=== PATIENT | female | born 1955 | race Caucasian/White ===

== ENCOUNTER 2023-12-06 10:12 | Inpatient (IN) | payer OTHER, MEDICARE ==
[2023-12-06] MEDS ORDERED: NA CHLORIDE 0.9% 1,000 ML ONE ×2 (10:57→12:44)
[2023-12-06] MEDS ORDERED: ONDANSETRON 4 MG/2 ML VIAL ONE (10:57)
[2023-12-06 11:18] LABS: Absolute Basophils 0.1 K/uL (0-0.5); Absolute Lymphocytes (CBC) 0.8 K/uL (0.7-4.9); Absolute Monocytes 0.7 K/uL (0.1-1.3); Absolute Neutrophil 19.9 K/uL (1.8-8.0); Basophils % 0.5 % (0-1.3); Hematocrit 43.2 % (36.0-45.0); Hemoglobin 14.6 g/dL (12.0-15.0); Lymphocytes % 3.9 % (15.3-44.8); MCH 29.8 pg (27.0-35.0); MCHC 33.9 g/dL (32.0-36.0); MCV 88.1 fL (80-100); MPV 7.3 fL (7.6-11.3); Monocytes % 3.3 % (3.3-12.3); Neutrophils % 92.3 % (41.7-73.7); Nucleated Red Blood Cells % 0.1 % (0-0); Platelets 316 thou/uL (152-406)
[2023-12-06 11:25] LABS: PTT, Activated Partial Thromb 31.3 SECONDS (24.3-36.9); Protime INR 1.09
[2023-12-06 11:29] LABS: SARS-CoV-2 Antigen CONTROL BLUE LINE VIS/BG OK; SARS-CoV-2 Antigen Rapid Res Negative (Negative)
[2023-12-06 11:39] LABS: Albumin 3.7 g/dL (3.4-5.0); Albumin/Globulin Ratio 0.9 (1.1-1.8); Bilirubin Total 0.9 mg/dL (0.2-1.0); Globulin 4.2 g/dL (2.3-3.5); Protein, Total 7.9 g/dL (6.4-8.2)
[2023-12-06 11:59] LABS: Specific Gravity 1.017 (1.005-1.030); Sqamous Epithelial <5 /HPF (None Seen); Urine Bacteria <20 /HPF (<20); Urine Bilirubin NEGATIVE (Negative); Urine Blood 3+ (Negative); Urine Clarity Extremely Turbid (Clear); Urine Color Light-Yellow (Yellow); Urine Culture Reflex Order NOT NEEDED; Urine Glucose 4+ (Over) (Negative); Urine Ketones TRACE (Negative); Urine Microscopic Reflex YN ORDER UMIC; Urine Mucus Slight /HPF (None Seen); Urine Nitrite NEGATIVE (Negative); Urine Protein 1+ (Negative); Urine Urobilinogen Normal (Normal); Urine pH 5.5 (5.0-7.0)
--- NOTE | 2023-12-06 12:11 | RAD REPORT ---
EXAM DESCRIPTION: CTAbdomen Pelvis W Contrast - 12/06/2023 12:02 pm CLINICAL HISTORY: Abdominal pain. Abd pain;Nausea / vomiting COMPARISON: No comparisons TECHNIQUE: Biphasic CT imaging of the abdomen and pelvis was performed with 100 ml non-ionic IV cont rast. All CT scans are performed using dose optimization technique as appropriate and may include automated exposure control or mA/KV adjustment according to patient size. FINDINGS: The lung bases are clear. The liver, spleen, pancreas, adrenal glands and kidneys are within normal limits. No bowel obstruction, free air, free fluid or abscess. The colon has a mildly thickened wall througho ut, greater on the right suggesting nonspecific colitis. No pneumatosis coli seen. The appendix is no t identified as a discrete structure, however, no secondary findings of appendicitis are identified. No evidence of significant lymphadenopathy. Small fat containing umbilical hernia. No suspicious bony findings. IMPRESSION: There is a diffuse mild colitis pattern suspected, greater on the right. This is nonspec ific but may be infectious or inflammatory in etiology.
[2023-12-06 12:41] LABS: Band Neutrophils 9 % (0-1); Blood Morphology Comment NOT SEEN (NOT SEEN); Differential Total Cells Count 100; Lymphocytes 3 % (15-42); Metamyelocytes 1 % (0-0); Monocytes 4 % (0-10); Platelet Estimate ADEQ; Segmented Neutrophils 83 % (40-80)
--- NOTE | 2023-12-06 12:43 | ER ---
Nurse's Notes [facility] Name: Karie Bae Age: 68 yrs Sex: Female : 1955 Arrival Date: 12/06/2023 Time: 10:12 Bed 19 Private MD: Diagnosis: Infectious gastroenteritis and colitis, unspecified;Hypotension, unspecified;Dehydration Presentation: 12/05 10:35 Chief complaint: Patient states: STATES DIARRHEA SINCE MONDAY. WENT TO DR. PARADA'S iw OFFICE THIS AM AND HR WAS IN 130'S. PT TOOK HOME MEDICATION METOPROL AND LOSARTAN. SENT TO ED FOR DEHYDRATION. TODAY HAS A HEADACHE WITH NAUSEA AND DIARRHEA. 10:35 Method Of Arrival: Ambulatory iw 10:36 Coronavirus screen: Client denies travel out of the [place] in the last 14 days. At this iw time, the client does not indicate any symptoms associated with coronavirus-19. Ebola Screen: Patient negative for fever greater than or equal to 101.5 degrees Fahrenheit, and additional compatible Ebola Virus Disease symptoms Patient denies exposure to infectious person. Patient denies travel to an Ebola-affected area in the 21 days before illness onset. No symptoms or risks identified at this time. 10:37 Initial Sepsis Screen: Does the patient meet any 2 criteria? HR > 90 bpm. No. Patient's iw initial sepsis screen is negative. Does the patient have a suspected source of infection? No. Patient's initial sepsis screen is negative. Risk Assessment: Do you want to hurt yourself or someone else? Patient reports no desire to harm self or others. Onset of symptoms was December 04, 2023. 10:37 Acuity: WOO 3 iw Triage Assessment: 10:37 General: Appears in no apparent distress. comfortable, Behavior is calm, cooperative. iw Pain: Complains of pain in head. Neuro: Level of Consciousness is awake, alert, obeys commands, Oriented to person, place, time, situation. Cardiovascular: No deficits noted. Respiratory: Airway is patent Respiratory effort is even, unlabored, Respiratory pattern is regular, symmetrical. GI: Reports diarrhea, nausea. : No deficits noted. No signs and/or symptoms were reported regarding the genitourinary system. Historical: - Allergies: 10:37 PENICILLINS; iw - PMHx: 10:37 TACHYCARDIA; iw - Immunization history:: Adult Immunizations unknown. - Infectious Disease History:: Denies. - Social history:: Smoking status: Patient denies any tobacco usage or history of. - Family history:: not pertinent. - Hospitalizations: : No recent hospitalization is reported. Screenin:35 [facility] ED Fall Risk Assessment (Adult) History of falling in the last 3 months, rs5 including since admission No falls in past 3 months (0 pts). 10:35 Abuse screen: Denies threats or abuse. Nutritional screening: No deficits noted. rs5 Tuberculosis screening: No symptoms or risk factors identified. Assessment: 10:36 General: Appears in no apparent distress. uncomfortable, Behavior is calm, cooperative. rs5 Pain: Denies pain. Neuro: Level of Consciousness is awake, alert, obeys commands, Oriented to person, place, time, situation. Cardiovascular: Rhythm is regular. Respiratory: Airway is patent Respiratory effort is even, unlabored, Respiratory pattern is regular, symmetrical. GI: Abdomen is round non-distended, Reports diarrhea, nausea, vomiting. : No signs and/or symptoms were reported regarding the genitourinary system. EENT: No signs and/or symptoms were reported regarding the EENT system. Derm: Skin is intact, Skin is pink, warm \T\ dry. Musculoskeletal: Range of motion: intact in all extremities. 12:02 Reassessment: Patient and/or family updated on plan of care and expected duration. Pain rs5 level reassessed. Patient is alert, oriented x 3, equal unlabored respirations, skin warm/dry/pink. 13:10 Reassessment: No changes from previously documented assessment. rs5 14:18 Reassessment: Patient denies pain at this time. Patient states feeling better. rs5 Vital Signs: 10:36 BP 95 / 66; Pulse 103; Resp 16; Temp 99.5(O); Pulse Ox 95% ; Weight 67.59 kg; Height 5 iw ft. 5 in. ; 14:18 BP 115 / 72; Pulse 94; Resp 18; Pulse Ox 99% ; rs5 10:36 Body Mass Index 24.79 (67.59 kg, 165.1 cm) iw ED Course: 10:15 Patient arrived in ED. im 10:34 Jesús Flynn MD is Attending Physician. rn 10:35 Patient has correct armband on for positive identification. Placed in gown. Bed in low rs5 position. Call light in reach. Side rails up X2. 10:35 No provider procedures requiring assistance completed. rs5 10:37 Triage completed. iw 10:39 Arm band placed on. iw 10:47 Raymon Diehl, RN is Primary Nurse. rs5 11:07 Initial lab(s) drawn, by me, sent to lab. First set of blood cultures drawn EKG done, zm by ED staff, COVID swab sent to lab. Flu and/or RSV swab sent to lab. 11:17 Inserted saline lock: 20 gauge in left antecubital area, using aseptic technique. Blood zm collected. 11:18 Warm blanket given. zm 11:19 Second set of blood cultures drawn by me. [id number] 11:48 Urine collected: clean catch specimen, clear. [id number] 12:04 CT Abd/Pelvis - IV Contrast Only In Process Unspecified. EDMS 12:42 Ankita Parada MD is Hospitalizing Provider. rn 15:57 Primary Nurse role handed off by Raymon Diehl RN hb Administered Medications: 11:15 Drug: NS 0.9% IV 1000 ml IV at 1 bolus Per protocol; 1000 mL bolus Route: IV; Rate: 1 rs5 bolus; Site: right antecubital; 11:20 Drug: Ondansetron IVP 4 mg IVP once; over 2 minutes Route: IVP; Site: left antecubital; rs5 12:30 Drug: Ciprofloxacin IVPB 400 mg 200 ml IVPB once over 60 mins Volume: 200 ml; Route: rs5 IVPB; Infused Over: 60 mins; Site: right antecubital; 12:45 Follow up: Response: No adverse reaction rs5 12:30 Drug: metroNIDAZOLE IVPB 500 mg 100 ml IVPB at 200 ml/hr once over 30 mins Volume: 100 rs5 ml; Route: IVPB; Rate: 200 ml/hr; Infused Over: 30 mins; Site: right antecubital; 12:45 Follow up: Response: No adverse reaction rs5 12:30 Drug: NS 0.9% IV 1000 ml IV at 1000 ml once Route: IV; Rate: 1000 ml; Site: right rs5 antecubital; 12:45 Follow up: Response: No adverse reaction rs5 Medication: 10:35 VIS not applicable for this client. rs5 Outcome: 12:42 Decision to Hospitalize by Provider. rn 15:57 Patient left the ED. hb 16:54 Patient left the ED. rs5 Signatures: Dispatcher [employer] EDAnjali Laws RN RN iw Jesús Flynn MD MD rn Baxter, Heather, RN RN hb Martinez, Zaina zm Sotelo, Ricky, RN RN rs5 Kathia Hurt Jordan [email or web address] Corrections: (The following items were deleted from the chart) 10:36 10:35 Chief complaint: Patient states: STATES DIARRHEA SINCE MONDAY. WENT TO DR. PARADA'S iw OFFICE THIS AM AND HR WAS IN 130'S. PT TOOK HOME MEDICATION METOPROL AND LOSARTAN. iw 10:38 10:35 Chief complaint: Patient states: STATES DIARRHEA SINCE MONDAY. WENT TO DR. PARADA'S iw OFFICE THIS AM AND HR WAS IN 130'S. PT TOOK HOME MEDICATION METOPROL AND LOSARTAN. SENT TO ED FOR DEHYDRATION iw : 10:37 Onset of symptoms was December 06, 2023 iw
--- NOTE | 2023-12-06 12:43 | EDPHYS ---
Physician Documentation [facility] Name: Karie Bae Age: 68 yrs Sex: Female : 1955 Arrival Date: 12/06/2023 Time: 10:12 Bed 19 Private MD: ED Physician Jesús Flynn HPI: 12/05 11:17 This 68 yrs old Female presents to ER via Ambulatory with complaints of Diarrhea, rn Nausea. 11:17 The patient presents to the emergency department with nausea, diarrhea, abdominal pain. rn Onset: The symptoms/episode began/occurred 3 day(s) ago. Possible causes: unknown. The symptoms are aggravated by nothing. The symptoms are alleviated by nothing. Severity of symptoms: At their worst the symptoms were moderate in the emergency department the symptoms are unchanged. The patient has not experienced similar symptoms in the past. Patient reports diarrhea, nonbloody since 3 days ago. Associated with nausea. Mild lower abdominal cramping. sick recently as well with mild diarrhea but is already over symptoms. Called PCP when heart rate was in the 130s today and told to come in for evaluation. Reports generalized weakness and malaise.. Historical: - Allergies: 10:37 PENICILLINS; iw - PMHx: 10:37 TACHYCARDIA; iw - Immunization history:: Adult Immunizations unknown. - Infectious Disease History:: Denies. - Social history:: Smoking status: Patient denies any tobacco usage or history of. - Family history:: not pertinent. - Hospitalizations: : No recent hospitalization is reported. ROS: 11:17 Constitutional: Negative for fever, chills, and weight loss, Cardiovascular: Negative rn for chest pain, palpitations, and edema, Respiratory: Negative for shortness of breath, cough, wheezing, and pleuritic chest pain, Abdomen/GI: Positive for nausea/vomiting/diarrhea Back: Negative for injury and pain, : Negative for injury, bleeding, discharge, and swelling, MS/Extremity: Negative for injury and deformity, Neuro: Positive for generalized weakness and malaise Exam: 11:17 Constitutional: This is a well developed, well nourished patient who is awake, alert, rn and in no acute distress. ENT: Dry mucous membranes Cardiovascular: Regular rate and rhythm with a normal S1 and S2. No gallops, murmurs, or rubs. Normal PMI, no JVD. No pulse deficits. Respiratory: Lungs have equal breath sounds bilaterally, clear to auscultation and percussion. No rales, rhonchi or wheezes noted. No increased work of breathing, no retractions or nasal flaring. Abdomen/GI: Soft, mild lower abdominal tenderness. No rebound or guarding. Neuro: Awake and alert, GCS 15 11:22 ECG was reviewed by the Attending Physician. rn Vital Signs: 10:36 BP 95 / 66; Pulse 103; Resp 16; Temp 99.5(O); Pulse Ox 95% ; Weight 67.59 kg; Height 5 iw ft. 5 in. ; 14:18 BP 115 / 72; Pulse 94; Resp 18; Pulse Ox 99% ; rs5 10:36 Body Mass Index 24.79 (67.59 kg, 165.1 cm) iw MDM: 10:34 Patient medically screened. rn 12:41 Differential diagnosis: Nonspecific abd pain, diverticulitis, viral gastroenteritis, rn gastroenteritis, Colitis. Data reviewed: vital signs, nurses notes, lab test result(s), radiologic studies, CT scan, and as a result, I will admit patient. Consideration of Admission/Observation Patient was admitted/placed on observation. Escalation of care including admission/observation considered. Management of patient was discussed with the following: Primary Care Provider: Case discussed with Dr. Wesley, will admit for IV antibiotics and fluids. Counseling: I had a detailed discussion with the patient and/or guardian regarding the historical points, exam findings, and any diagnostic results supporting the discharge/admit diagnosis, lab results, radiology results, the need for further work-up and treatment in the hospital. Response to treatment: the patient's symptoms have mildly improved after treatment, and as a result, I will admit patient. ED course: Patient still mildly hypotensive, will admit for colitis. 12/05 10:47 Order name: CBC with Diff; Complete Time: 12:43 rn 12/05 10:47 Order name: CMP; Complete Time: 12:15 rn 12/05 10:47 Order name: Lipase; Complete Time: 12:15 rn 12/05 10:47 Order name: Urinalysis w/ reflexes; Complete Time: 12:15 rn 12/05 10:47 Order name: SARS RAPID; Complete Time: 12:15 rn 12/05 10:47 Order name: Flu; Complete Time: 12:15 rn 12/05 10:47 Order name: Blood Culture Adult (2) rn 12/05 10:47 Order name: Lactate w/ 2H reflex if indic.; Complete Time: 12:15 rn 12/05 10:47 Order name: Protime (+inr); Complete Time: 12:15 rn 12/05 10:47 Order name: Ptt, Activated; Complete Time: 12:15 rn 12/05 12:39 Order name: Manual Differential; Complete Time: 12:43 EDMS 12/05 10:47 Order name: CT Abd/Pelvis - IV Contrast Only; Complete Time: 12:15 rn 12/05 10:47 Order name: EKG; Complete Time: 10:47 rn 12/05 10:47 Order name: IV Saline Lock; Complete Time: 11:48 rn 12/05 10:47 Order name: Labs collected and sent; Complete Time: 11:48 rn 12/05 10:47 Order name: Accucheck; Complete Time: 11:47 rn 12/05 10:47 Order name: Cardiac monitoring; Complete Time: 11:47 rn 12/05 10:47 Order name: EKG - Nurse/Tech; Complete Time: 11:47 rn 12/05 10:47 Order name: IV Saline Lock - Large Bore; Complete Time: 11:47 rn 12/05 10:47 Order name: O2 Per Protocol; Complete Time: 11:47 rn 12/05 10:47 Order name: O2 Sat Monitoring; Complete Time: 11:47 rn 12/05 10:47 Order name: Vital Signs; Complete Time: 11:47 rn EC: Rate is 97 beats/min. Rhythm is regular. QRS Boles is Normal. DE interval is normal. QRS rn interval is normal. QT interval is normal. No Q waves. T waves are Normal. No ST changes noted. Clinical impression: NSR w/ Non-specific ST/T Changes. Interpreted by me. Reviewed by me. Administered Medications: 11:15 Drug: NS 0.9% IV 1000 ml IV at 1 bolus Per protocol; 1000 mL bolus Route: IV; Rate: 1 rs5 bolus; Site: right antecubital; 11:20 Drug: Ondansetron IVP 4 mg IVP once; over 2 minutes Route: IVP; Site: left antecubital; rs5 12:30 Drug: Ciprofloxacin IVPB 400 mg 200 ml IVPB once over 60 mins Volume: 200 ml; Route: rs5 IVPB; Infused Over: 60 mins; Site: right antecubital; 12:45 Follow up: Response: No adverse reaction rs5 12:30 Drug: metroNIDAZOLE IVPB 500 mg 100 ml IVPB at 200 ml/hr once over 30 mins Volume: 100 rs5 ml; Route: IVPB; Rate: 200 ml/hr; Infused Over: 30 mins; Site: right antecubital; 12:45 Follow up: Response: No adverse reaction rs5 12:30 Drug: NS 0.9% IV 1000 ml IV at 1000 ml once Route: IV; Rate: 1000 ml; Site: right rs5 antecubital; 12:45 Follow up: Response: No adverse reaction rs5 Disposition Summary: 12/06/23 12:42 Hospitalization Ordered Notes: Hospitalization Status: Inpatient Admission rn Provider: Ankita Wesley rn Location: Telemetry/MedSurg (Inpatient) rn Condition: Stable rn Problem: new rn Symptoms: have improved rn Bed/Room Type: Standard rn Room Assignment: 406(12/06/23 15:57) hb Diagnosis - Infectious gastroenteritis and colitis, unspecified rn - Hypotension, unspecified rn - Dehydration rn Forms: - Medication Reconciliation Form rn - SBAR form rn - Leadership Thank You Letter rn Signatures: Dispatcher [employer] Anjali Molnia, LAURI CARREON Jesús Flynn MD MD rn Baxter, Heather, RN RN Raymon Diehl RN RN rs5 Corrections: (The following items were deleted from the chart) 10:47 10:47 CBC+H.LAB.BRZ ordered. EDMS EDMS 10:47 10:47 COMPREHENSIVE METABOLIC PANEL+C.LAB.BRZ ordered. EDMS EDMS 10:47 10:47 LIPASE+C.LAB.BRZ ordered. EDMS EDMS 10:47 10:47 Urinalysis+U.LAB.BRZ ordered. EDMS EDMS 10:47 10:47 SARS-COV-2 Antigen Rapid+I.LAB.BRZ ordered. EDMS EDMS 10:47 10:47 Influenza Screen (A \T\ B)+BA.LAB.BRZ ordered. EDMS EDMS 10:47 10:47 BLOOD CULTURE*+BA.LAB.BRZ ordered. EDMS EDMS 10:47 10:47 LACTATE+C.LAB.BRZ ordered. EDMS EDMS 10:47 10:47 PROTIME (+INR)+COAG.LAB.BRZ ordered. EDMS EDMS 10:47 10:47 PTT, ACTIVATED+COAG.LAB.BRZ ordered. EDMS EDMS 15:57 12:42 rn hb
[2023-12-06] MEDS ORDERED: CIPROFLOXACIN 400mg IV 400 MG/200 ML BAG IV ONE (12:44)
[2023-12-06] MEDS ORDERED: METRONIDAZOLE 500mg IVPB 500 MG/100 ML BAG IV ONE (12:44)
[2023-12-06] MEDS ORDERED: MORPHINE 4 MG/ML SYR IV PRN (17:45)
[2023-12-06 17:48] VITALS: O2SAT 99
[2023-12-06] MEDS: D5 0.45 NS 1,000 ML IV SCH (18:43)
[2023-12-06] MEDS: METRONIDAZOLE 500mg IVPB 500 MG/100 ML BAG IV SCH (18:43)
[2023-12-06] MEDS: CIPROFLOXACIN 400mg IV 400 MG/200 ML BAG IV SCH (20:15)
[2023-12-07 02:42] LABS: C.diff Antigen/Toxin Ag neg : Tox neg (NEG : NEG); CDIFF INTERNAL NEG CONTROL White Background (WHITE BKGD); STOOL CONSISTENCY Liquid/Semi-Solid
--- NOTE | 2023-12-07 06:00 | HP ---
Date of Admission: 12/06/2023 Chief Complaint: Diarrhea. History Of Present Illness: This is a 68-year-old female patient, who called my office today with complaints of 2 days history of diarrhea and not feeling well at all. She was asked to check her vital signs at home, and her pulse rate was 136, systolic blood pressure was around 111. With that in mind, she was advised to come to emergency room and after she was evaluated in the emergency room, she was admitted to the hospital. Her initial blood pressure was 95/66. The patient was given IV fluid in the emergency room, and empiric IV antibiotics were started, and her condition has improved. When I saw her this evening, she was feeling a lot better compared to earlier today. The patient reports that she had gone out of town with her to [place] and she just came back Monday night, and this was a road trip, and they both ate the same type of food on the day and the day before she got sick. Her does not have any such symptoms and as of Monday night, she started to have fever, chills, nausea, and diarrhea. Denies any abdominal pain. Denies any blood in stool. She had very poor appetite and did not eat or drink much in last couple of days. She has felt very weak and lightheaded at times. Her diarrhea was very frequent, approximately 20-24 times in 24-hour period. Allergies: PENICILLIN CAUSING SHORTNESS OF BREATH AND SHE PASSED OUT. Medications: Caltrate Plus D one tablet 2 times a day; vitamin D3, 1000 units daily; Jardiance 10 mg daily; famotidine 40 mg two times a day; fluticasone nasal spray, one spray each nostril 2 times a day; metoprolol tartrate 50 mg two times a day; olmesartan 20 mg daily; simvastatin 40 mg daily. Review of Systems: Constitutional: As mentioned above. GI: As mentioned above. All other systems reviewed and negative. Past Medical History: Significant for impaired fasting glucose, hypothyroidism, hypertension, hyperlipidemia, gastroesophageal reflux disease, vitamin D deficiency, chronic kidney disease stage 3a. Past Surgical History: Significant for tubal ligation, D and C, appendectomy, removal of basal cell carcinoma. Family History: Father has prostate cancer. Brother had some valvular heart disease. Sister with breast cancer. Social History: Negative for smoking. Use of alcohol, occasional. Physical Examination: Vital Signs: Height 5 feet 5 inches, weight 149 pounds, temperature 99.5 when she first came into emergency room with blood pressure 95/66, pulse 103, respiratory rate 16, oxygen saturation 95%. Last temperature 98.7, pulse 97, respiratory rate 18, blood pressure 120/74, oxygen saturation 93%. General: Awake, alert, oriented, not in distress. HEENT: Head atraumatic, normocephalic. Conjunctivae nonerythematous. Sclerae white. Mouth, no thrush or edema noted. Ears/Nose, no mass, lesion, discharge noted. Neck: Supple. No JVD, lymph nodes, bruit, thyromegaly noted. Lungs: Bilateral good equal air entry. Clear to auscultation. No rhonchi. No rales. Heart: Normal heart sounds, no murmur or gallop. Abdomen: Soft, bowel sounds normal. No guarding, rigidity, tenderness, mass, hepatosplenomegaly, distention, or bruit noted. Extremities: No leg edema. No calf tenderness. Skin: No rash, ulcer, cellulitis. Lymphatics: No lymph node enlargement in neck, supraclavicular, infraclavicular region. Neuro: No focal neurological deficit. Chest: Unremarkable. External Genitalia: Deferred. Rectal: Deferred. Laboratory Data: White count 21.6, hemoglobin 14.6, platelets 316. Sodium 131, potassium 4, chloride 102, bicarb 24, BUN 14, creatinine 1.36, glucose 142. Lactic acid 2. Liver function tests unremarkable. Lipase 52. Urinalysis: Leukocyte esterase 75, rbc 11 to 20, wbc 5 to 10, bacteria negative. Imaging: CAT scan of abdomen and pelvis shows diffuse colitis changes, more on right side than the left side of the colon. Impression: 1. Colitis. 2. Volume depletion. 3. Chronic kidney disease, stage 3a. 4. Hypothyroidism. 5. Hypertension. 6. Impaired fasting glucose. 7. Hyperlipidemia. 8. Gastroesophageal reflux disease. Plan: We will go ahead and admit the patient to hospital for further evaluation and management of this problem. The patient is appropriate for inpatient and is expected to spend 2 midnights in hospital. For her colitis, we will continue empiric IV antibiotic, which is Cipro and metronidazole. I will order stool for C diff and culture. For volume depletion, we will go ahead and continue IV fluid per order. The patient already received 1 L of IV fluid in the emergency room and will continue maintenance IV fluid at this time. For hypertension, we will not start any antihypertensive medication until appropriate time. For hyperlipidemia, we will continue her statin therapy per order. For gastroesophageal reflux disease, continue famotidine and no need for further intervention. For DVT prophylaxis, the patient was advised to move her legs as advised, and we will order Lovenox. Ambulation was encouraged. The patient is on clear liquid diet today. Starting tomorrow, we will advance her diet. We will repeat blood work tomorrow and plan is to discharge her to go home once her condition improves. Details and plan of treatment discussed with the patient. Total time spent was 80 minutes, that includes review of prior hospital record, communication with the patient prior to arrival to the emergency room, review of current emergency room records, communication with ER physicians performing evaluation and management for this hospital admission, and I also communicated with her son this evening and details were discussed with him as well. FANY/GYPSY Voice ID: [id number] BEV
[2023-12-07 06:06] LABS: Absolute Eosinophils 0.1 K/uL (0-0.5); Absolute Lymphocytes (CBC) 1.2 K/uL (0.7-4.9); Absolute Monocytes 1.1 K/uL (0.1-1.3); Absolute Neutrophil 10.4 K/uL (1.8-8.0); Basophils % 0.4 % (0-1.3); Eosinophils % 0.6 % (0-4.4); Hematocrit 38.3 % (36.0-45.0); Hemoglobin 12.6 g/dL (12.0-15.0); Lymphocytes % 9.1 % (15.3-44.8); MCH 29.3 pg (27.0-35.0); MCHC 32.9 g/dL (32.0-36.0); MCV 89.1 fL (80-100); MPV 7.6 fL (7.6-11.3); Monocytes % 8.7 % (3.3-12.3); Neutrophils % 81.2 % (41.7-73.7); Nucleated Red Blood Cells % 0.1 % (0-0); Platelets 247 thou/uL (152-406); Red Cell Distribution Width 13.1 % (12.1-15.2)
[2023-12-07 06:25] LABS: Anion Gap 4.9 mEq/L (5.0-15.0); Potassium 3.9 mEq/L (3.5-5.1)
[2023-12-07] MEDS: ONDANSETRON 4 MG/2 ML VIAL IV PRN (06:41)
[2023-12-07] MEDS: ENOXAPARIN 40 MG/0.4 ML SQ SCH (07:38)
[2023-12-07] MEDS: FAMOTIDINE 20 MG TAB PO SCH (07:39)
[2023-12-07] MEDS ORDERED: FAMOTIDINE 20 MG TAB PO SCH (09:00)
[2023-12-07 16:17] VITALS: BMI 25.0
[2023-12-07] MEDS: ATORVASTATIN 20 MG TAB PO SCH (21:00)
[2023-12-07 21:06] VITALS: TEMP 97.6
--- NOTE | 2023-12-08 00:01 | PN ---
Date of Progress Note: 12/07/2023 Subjective: The patient was seen this morning for followup. No new complaints or problems reported by the patient this morning, except reported that she continued to have diarrhea as frequently as before she came into the hospital, but the volume of stool has gone down. She did notice that her stool was darker overnight. No bright red blood. She has been having some abdominal cramping off and on. No nausea, vomiting overnight. This morning, she was not feeling better. In fact compared to last night, when I saw her this morning she was feeling worse. Objective: Vital Signs: Reviewed. Blood pressure has remained stable with systolic blood pressure around 120 to 125 range. HEENT: Unremarkable. Lungs: Clear to auscultation. Heart: Sounds normal. Abdomen: Soft. Bowel sounds normal. No guarding, rigidity, tenderness, distention. Extremities: No leg edema. Laboratory Data: White count 12.8, hemoglobin 12.6, platelets 247. Sodium 138, potassium 3.9, chloride 111, bicarb 26, BUN 8, creatinine 0.84, glucose 125. Impression: 1. Colitis. 2. Volume depletion. 3. Hypertension. Plan: We will go ahead and continue current medication. We will change her diet from regular diet to clear liquid diet again today considering she is not feeling good compared to last night. I have encouraged her to ambulate. Continue DVT prophylaxis with Lovenox. We will start IV fluid again this morning, D5 normal saline at 75 cc/hour and I will see her tomorrow for followup. We will continue current antibiotics. Possible discharge to go home tomorrow depending on her condition. FANY/MODL Voice ID: [id number] Report ID: [id number] BEV
[2023-12-08 06:15] LABS: Absolute Basophils 0.1 K/uL (0-0.5); Absolute Eosinophils 0.2 K/uL (0-0.5); Absolute Lymphocytes (CBC) 1.6 K/uL (0.7-4.9); Absolute Neutrophil 6.5 K/uL (1.8-8.0); Basophils % 0.6 % (0-1.3); Eosinophils % 1.8 % (0-4.4); Hematocrit 37.6 % (36.0-45.0); Hemoglobin 12.5 g/dL (12.0-15.0); Lymphocytes % 16.9 % (15.3-44.8); MCH 29.6 pg (27.0-35.0); MCHC 33.4 g/dL (32.0-36.0); MCV 88.8 fL (80-100); MPV 7.6 fL (7.6-11.3); Neutrophils % 69.7 % (41.7-73.7); Platelets 256 thou/uL (152-406); RBC Red Blood Cell Count 4.23 M/uL (3.86-4.86); Red Cell Distribution Width 12.9 % (12.1-15.2)
[2023-12-08 06:24] LABS: Anion Gap 4.1 mEq/L (5.0-15.0); Magnesium 2.1 mg/dL (1.6-2.4); Potassium 4.1 mEq/L (3.5-5.1)
[2023-12-08] MEDS: metroNIDAZOLE 500 MG TABLET PO ONE (09:25)
[2023-12-08] MEDS: CIPROFLOXACIN HCL 500 MG TAB PO ONE (09:25)
[2023-12-08 09:45] VITALS: BP 117/75
--- NOTE | 2023-12-08 16:58 | EKG ---
Test Date: 2023-12-06 Test Time: 11:02:40 Draughtsman: GARCIA MEASUREMENT RESULTS: Intervals: Rate: 97 MA: 162 QRSD: 82 QT: 336 QTc: 426 Bartelso: P: 73 MA: 162 QRS: 17 T: 62 INTERPRETIVE STATEMENTS: Normal sinus rhythm Cannot rule out Anterior infarct, age undetermined Abnormal ECG No previous ECG available for comparison Electronically Signed On 12-08-23 16:50:33 CDT by Adi Vincent
--- NOTE | 2023-12-09 04:17 | DS ---
Date of Discharge: 12/08/2023 Disposition: Discharged to go home. Physical Examination: HEENT: Unremarkable. Lungs: Clear to auscultation. Heart: Sounds normal. Abdomen: Soft, bowel sounds normal. No guarding, rigidity, tenderness, distention. Extremities: No leg edema. Laboratory Data: Upon admission, white count 21.6, hemoglobin 14.6, platelets 316. Today, white cou nt 9.3, hemoglobin 12.5, platelets 256. Chemistry upon admission, sodium 131, potassium 4, chloride 102, bicarb 24, BUN 14, creatinine 1.36, glucose 142. Lactic acid 2. Liver function tests unremarka ble. Lipase 52. Today, sodium 139, potassium 4.1, chloride 109, bicarb 30, BUN 6, creatinine 0.80, glucose 121, magnesium 2.1. Stool for C. difficile was negative. Stool culture result pending. Hospital Course: This is a 68-year-old pleasant female patient who was admitted to the hospital afte r she came into emergency room with diarrhea, nausea, and abdominal cramps. Please see lucero Talbot for more information. After patient was evaluated in the emergency room, she was admitted to the hospital with acute kidney injury, volume depletion, and significant colitis as detected on CT scan of the abdomen, which was done in the emergency room. The patient had low blood pressure when she fi rst came in with systolic blood pressure around 95 or so and she responded very well to IV fluid hydr ation and IV antibiotics, Cipro and metronidazole, were started. Overall, her condition has improved very well. Her last diarrhea and a bowel movement was yesterday morning, so almost she has not had any bowel movement in last 24 hours. Denies any more abdominal cramps or pain and no more nausea. O verall condition has improved significantly. This morning she feels a lot better. She is ambulating well and tolerating her clear liquid diet very well. I did talk to her and advised her that we can advance her diet now and she should start eating bland diet for next couple of days along with liquid s, and avoid food like fried food or meat, guzman, etc., for a week or so. I have instructed her to c ome see me next week for followup. Final Diagnoses: 1.Colitis. 2.Volume depletion. 3.Acute kidney injury. 4.Hypothyroidism. 5.Hypertension. 6.Impaired fasting glucose. 7.Hyperlipidemia. 8.Gastroesophageal reflux disease. Discharge Medications: Continue all prior home medications except following changes: 1.Start metoprolol as of today evening. 2.Start olmesartan as of December 11, 2023. 3.Start Cipro 500 mg take 1 tablet by mouth 2 times a day for 1 week. 4.Start metronidazole 500 mg take 1 tablet by mouth 3 times a day for 1 week and the patient was ins tructed that if she ends up having nausea problem with metronidazole that for her to reduce dose to h carlos a tablet 3 times a day for 1 week. 5.Make sure to take Cipro and metronidazole after meal. 6.Follow up at office next week. Total time spent 35 minutes. FANY/GYPSY Voice ID: [id number] Report ID: [id number]
== END 2023-12-08 10:19 | disposition home or self-care (01) | DRG 392 ==
LOC: ER 10:12 → ERHOLD 15:29 → 4TH 16:47
PROVIDERS: ADMIT Internal Medicine; ATTEND Internal Medicine
DX: A09 Infectious gastroenteritis and colitis, unspecified (principal); N17.9 Acute kidney failure, unspecified; I12.9 Hypertensive chronic kidney disease with stage 1 through stage 4 chronic kidney disease, or unspecified chronic kidney disease; N18.31 Chronic kidney disease, stage 3a; E86.0 Dehydration; E78.5 Hyperlipidemia, unspecified; E03.9 Hypothyroidism, unspecified; E86.9 Volume depletion, unspecified; K21.9 Gastro-esophageal reflux disease without esophagitis; R73.01 Impaired fasting glucose; Z88.0 Allergy status to penicillin; Z98.51 Tubal ligation status; Z11.52 Encounter for screening for COVID-19; Z90.49 Acquired absence of other specified parts of digestive tract
CPT/HCPCS: 36415; 74177; 80048; 80053; 81001; 83605; 83690; 83735; 85025; 85610; 85730; 87040; 87045; 87046; 87324; 87804; 87811; 93005; 99284; J0744; J1650; J2405; J7030; J7799; Q9967